=== PATIENT | male | born 1985 | race African-American/Black ===

== ENCOUNTER 2022-03-25 20:29 | Emergency (ER) | payer OTHER ==
[2022-03-25 20:36] VITALS: BP 131/65; PULSE 106; TEMP 98.6; BMI 29.9
== END 2022-03-25 21:39 | disposition home or self-care (01) ==
LOC: JERFT 20:29
DX: S63.602A Unspecified sprain of left thumb, initial encounter (principal); X50.0XXA Overexertion from strenuous movement or load, initial encounter
CPT/HCPCS: 73140-TC-LT-FY; 99281-25